=== PATIENT | female | born 1995 | race Caucasian/White ===

== ENCOUNTER → 2016-06-27 | Outpatient (CLI) | payer OTHER ==
[~2016-06-27] MED LIST: BCPILLS PO; CHOL100027 PO; INSDGI SC; INSU100I17 SC
[2016-06-27 16:08] LABS: ESTIMATED AVERAGE GLUCOSE 120 mg/dl; HA1C FLAG Normal (Normal)
== END | disposition home or self-care (01) ==
LOC: C.LAB1850 15:09
PROVIDERS: ATTEND Obstetrics & Gynecology
DX: E10.9 Type 1 diabetes mellitus without complications (principal)